=== PATIENT | male | born 1995 | race Caucasian/White ===

== ENCOUNTER 2018-02-17 06:40 | Emergency (ER) | payer BC ==
[2018-02-17] MEDS ORDERED: GABA-549 PO (06:58)
[2018-02-17] MEDS ORDERED: ALBUTEROL/IPRATROPIUM 3 ML NEB NEB ONE (07:10)
[2018-02-17] MEDS ORDERED: NS(*) 0.9% 1000 ML BAG 1,000 ML IV ONE (07:10)
--- NOTE | 2018-02-17 07:14 | ER Report ---
History and Physical Time Seen By MD: 07:11 Hx. of Stated Complaint: patient has been sick from "flu" he states for about a week and has been getting worse; states chest hurts from coughing and is congested. HPI/ROS CHIEF COMPLAINT: Fever, cough flu symptoms HISTORY OF PRESENT ILLNESS: Patient has been having "flu symptoms" for the past week. Was seen in urgent care had a rapid flu that was negative. Since that time he's been having cyclic fevers, complains of dull pain to the right ear along with feeling that it is blocked. He complains of sore throat and productive cough of yellow sputum. No known ill contacts. 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 REVIEW OF SYSTEMS: Respiratory: Cough Cardiovascular: No chest pain, no palpitations. Gastrointestinal: No vomiting, no abdominal pain. Musculoskeletal: No back pain. Allergies: Coded Allergies: Penicillins (Verified Allergy, Unknown, 11/04/15) Home Meds Active Scripts Guaifenesin/Pseudoephedrne Hcl (MUCINEX D ER 1,200-120 MG TAB) 1 Each Tab.er.12h , 1 EACH PO Q12H for cough, #14 TAB 0 Refills Prov:SKYLA BRICE MD 02/17/18 Azithromycin (ZITHROMAX) 250 Mg Tablet, 1 TAB PO QDAY for 4 Days, #4 TAB 0 Refills next dose on 02/18/18 Prov:SKYLA BRICE MD 02/17/18 Reported Medications Gabapentin (GABAPENTIN) 300 Mg Capsule, 600 MG PO HS, CAPSULE 02/17/18 Past Medical/Surgical History History of toe amputation secondary to frostbite injury Hx Substance Use Disorder: No Hx Alcohol Use: No Constitutional Vital Sign - Last 24 Hours 02/17/18 02/17/18 02/17/18 02/17/18 06:40 06:46 06:48 07:00 Temp 99.4 Pulse ??? 124 Resp 19 B/P (MAP) 139/87 (104) 139/87 127/78 (94) Pulse Ox 93 O2 Delivery Room Air 02/17/18 02/17/18 02/17/18 02/17/18 07:10 07:15 07:20 07:20 Pulse ??? 101 Resp 18 B/P (MAP) 124/79 (94) Pulse Ox 93 93 O2 Delivery Room Air 02/17/18 02/17/18 02/17/18 02/17/18 07:21 07:21 07:30 07:40 Pulse 105 ??? Resp 18 B/P (MAP) 129/82 (98) Pulse Ox 99 O2 Delivery Room Air 02/17/18 02/17/18 02/17/18 02/17/18 07:41 07:45 08:00 08:10 Pulse 104 Resp 22 B/P (MAP) 120/83 (95) 125/80 (95) 127/76 (93) Pulse Ox 94 02/17/18 02/17/18 08:15 08:30 B/P (MAP) 119/69 (86) 116/69 (85) Intake and Output 02/17/18 02/17/18 02/18/18 15:00 23:00 07:00 Intake Total 1000 ml Balance 1000 ml Physical Exam General Appearance: The patient is alert, has no immediate need for airway protection and no current signs of toxicity. Eyes: Pupils equal and round no injection. Respiratory: Patient has rhonchi in the right lower lung moya exacerbated with cough Cardiac: Heart rate is slightly tachycardic but regular rhythm Gastrointestinal: Abdomen is soft and non tender, no masses, bowel sounds normal. Musculoskeletal: Neck: Neck is supple and non tender. Extremities have full range of motion and are non tender. Skin: No rashes or lesions. Medical Decision Making Data Points Result Diagram: 02/17/18 0650 02/17/18 0650 Laboratory Hematology Test 02/17/18 06:50 Red Blood Count 5.40 M/uL (4.00-5.60) Mean Corpuscular Volume 88.2 fL (80.0-96.0) Mean Corpuscular Hemoglobin 31.0 pg (26.0-33.0) Mean Corpuscular Hemoglobin Concent 35.1 g/dL (32.0-36.0) Red Cell Distribution Width 12.5 % (11.5-14.5) Mean Platelet Volume 9.1 fL (7.2-11.1) Neutrophils (%) (Auto) 80.8 % (39.4-72.5) Lymphocytes (%) (Auto) 7.8 % (17.6-49.6) Monocytes (%) (Auto) 10.9 % (4.1-12.4) Eosinophils (%) (Auto) 0.1 % (0.4-6.7) Basophils (%) (Auto) 0.4 % (0.3-1.4) Nucleated RBC Relative Count (auto) 0.1 /100WBC Neutrophils # (Auto) 12.7 K/uL (2.0-7.4) Lymphocytes # (Auto) 1.2 K/uL (1.3-3.6) Monocytes # (Auto) 1.7 K/uL (0.3-1.0) Eosinophils # (Auto) 0.0 K/uL (0.0-0.5) Basophils # (Auto) 0.1 K/uL (0.0-0.1) Nucleated RBC Absolute Count (auto) 0.01 K/uL Sodium Level 137 mmol/L (137-145) Potassium Level 4.0 mmol/L (3.5-5.0) Chloride Level 98 mmol/L (98-107) Carbon Dioxide Level 25 mmol/L (22-30) Blood Urea Nitrogen 10 mg/dl (9-21) Creatinine 1.20 mg/dl (0.66-1.25) Glomerular Filtration Rate Calc > 60.0 Random Glucose 116 mg/dl (75-110) Calcium Level 10.1 mg/dl (8.4-10.2) Total Bilirubin 1.7 mg/dl (0.2-1.3) Aspartate Amino Transf (AST/SGOT) 23 U/L (0-35) Alanine Aminotransferase (ALT/SGPT) 35 U/L (0-56) Alkaline Phosphatase 89 U/L (0-126) Total Protein 8.2 gm/dl (6.3-8.2) Albumin 4.4 g/dl (3.5-5.0) Group A Streptococcus Screen Negative (NEGATIVE) Chemistry Test 02/17/18 06:50 White Blood Count 15.7 k/uL (4.5-11.0) Red Blood Count 5.40 M/uL (4.00-5.60) Hemoglobin 16.7 g/dL (14.0-18.0) Hematocrit 47.6 % (42.0-52.0) Mean Corpuscular Volume 88.2 fL (80.0-96.0) Mean Corpuscular Hemoglobin 31.0 pg (26.0-33.0) Mean Corpuscular Hemoglobin Concent 35.1 g/dL (32.0-36.0) Red Cell Distribution Width 12.5 % (11.5-14.5) Platelet Count 176 K/uL (150-450) Mean Platelet Volume 9.1 fL (7.2-11.1) Neutrophils (%) (Auto) 80.8 % (39.4-72.5) Lymphocytes (%) (Auto) 7.8 % (17.6-49.6) Monocytes (%) (Auto) 10.9 % (4.1-12.4) Eosinophils (%) (Auto) 0.1 % (0.4-6.7) Basophils (%) (Auto) 0.4 % (0.3-1.4) Nucleated RBC Relative Count (auto) 0.1 /100WBC Neutrophils # (Auto) 12.7 K/uL (2.0-7.4) Lymphocytes # (Auto) 1.2 K/uL (1.3-3.6) Monocytes # (Auto) 1.7 K/uL (0.3-1.0) Eosinophils # (Auto) 0.0 K/uL (0.0-0.5) Basophils # (Auto) 0.1 K/uL (0.0-0.1) Nucleated RBC Absolute Count (auto) 0.01 K/uL Glomerular Filtration Rate Calc > 60.0 Calcium Level 10.1 mg/dl (8.4-10.2) Total Bilirubin 1.7 mg/dl (0.2-1.3) Aspartate Amino Transf (AST/SGOT) 23 U/L (0-35) Alanine Aminotransferase (ALT/SGPT) 35 U/L (0-56) Alkaline Phosphatase 89 U/L (0-126) Total Protein 8.2 gm/dl (6.3-8.2) Albumin 4.4 g/dl (3.5-5.0) Group A Streptococcus Screen Negative (NEGATIVE) EKG/Imaging Imaging [place]ACILITY[place] [facility] [place]IENT NAME: John Ibarra : 1995 MR: [id number] V: [id number] EXAM DATE: ORDERING PHYSICIAN: SKYLA BRICE TECHNOLOGIST: Location: [facility] [place] Patient: John Ibarra : 1995 Visit/Account:[id number] Date of Sevice: 02/17/2018 CHEST PA AND LAT INDICATION: RESP DISTRESS COMPARISON: 11/04/2015 FINDINGS: Heart size within normal limits. There is no focal infiltrate or lobar consolidation. There is no pneumothorax or pleural effusion. IMPRESSION: 1. No acute cardiopulmonary process. Report Dictated By: Steven Otto at 02/17/2018 8:05 AM Report E-Signed By: Steven Otto at 02/17/2018 8:06 AM [email or web address] ED Course/Re-evaluation Clinical Indication for ER IV: IV Access ED Course 02/17/2018 7:13:26 am After history and physical exam was performed differential diagnosis was formulated which includes but is not limited to viral upper respiratory tract infection, pneumonia, strep throat, influenza. Plan at this time will be IV hydration we will check CBC and electrolytes. We will check a chest x-ray. Decision to Disposition Date: February 17, 2018 Decision to Disposition Time: 08:23 Depart Departure Latest Vital Signs Vital Signs Date Time Temp Pulse Resp B/P (MAP) Pulse Ox O2 Delivery O2 Flow Rate FiO2 02/17/18 08:30 116/69 (85) 02/17/18 08:10 104 22 94 02/17/18 07:21 Room Air 02/17/18 06:48 99.4 Impression: Primary Impression: Otitis media Additional Impression: Upper respiratory infection Condition: Improved Disposition: HOME OR SELF-CARE New Scripts Guaifenesin/Pseudoephedrne Hcl (MUCINEX D ER 1,200-120 MG TAB) 1 Each Tab.er.12h 1 EACH PO Q12H for cough, #14 TAB 0 Refills Prov: SKYLA BRICE MD 02/17/18 Azithromycin (ZITHROMAX) 250 Mg Tablet 1 TAB PO QDAY for 4 Days, #4 TAB 0 Refills next dose on 02/18/18 Prov: SKYLA BRICE MD 02/17/18 Departure Forms: ER Transition Record, Medications Reconciliation, Patient Portal Information Patient Instructions: Otitis Media (GEN), Upper Respiratory Infection (GEN) Problem Qualifiers Primary Impression: Otitis media Otitis media type: suppurative Chronicity: acute Laterality: right Recurrence: not specified as recurrent Spontaneous tympanic membrane rupture: without spontaneous rupture Qualified Codes: H66.001 - Acute suppurative otitis media without spontaneous rupture of ear drum, right ear SKYLA BRICE MD February 17, 2018 07:14
[2018-02-17 07:37] LABS: PLATELET COUNT, AUTOMATED 176 K/uL (150-450)
--- NOTE | 2018-02-17 08:11 | RADIOLOGY IMAGING REPORT ---
FACILITY: [facility] - [place] PATIENT NAME: John Ibarra : 1995 MR: [id number] V: [id number] EXAM DATE: ORDERING PHYSICIAN: SKYLA BRICE TECHNOLOGIST: Location: [facility] Patient: John Ibarra : 1995 Visit/Account:[id number] Date of Sevice: 02/17/2018 CHEST PA AND LAT INDICATION: RESP DISTRESS COMPARISON: 11/04/2015 FINDINGS: Heart size within normal limits. There is no focal infiltrate or lobar consolidation. There is no pneumothorax or pleural effusion. IMPRESSION: 1. No acute cardiopulmonary process. Report Dictated By: Steven Otto at 02/17/2018 8:05 AM Report E-Signed By: Steven Otto at 02/17/2018 8:06 AM [email or web address]
[2018-02-17 08:30] VITALS: BP 116/69
[2018-02-17] MEDS ORDERED: AZIT-1 PO (08:30)
[2018-02-17] MEDS ORDERED: GUAI-645 PO (08:30)
[2018-02-17] MEDS ORDERED: AZITHROMYCIN 250 MG TAB PO ONE (08:35)
== END 2018-02-17 08:42 | disposition home or self-care (01) ==
LOC: ER 07:01
DX: J06.9 Acute upper respiratory infection, unspecified (principal); H66.001 Acute suppurative otitis media without spontaneous rupture of ear drum, right ear
CPT/HCPCS: 71046; 85025; 87081; 87880; 94640; 96360; 99284; J7030; J7620; Q0144; 82040; 82247; 82310; 82374; 82435; 82565; 82947; 84075; 84132; 84155; 84295; 84450; 84460; 84520